=== PATIENT | male | born 1960 ===

== ENCOUNTER 2017-04-29 14:01 | Outpatient (CLI) | payer OTHER | END 2017-04-29 15:37 | disposition home or self-care (01) | LOC: SONOGRAMA 14:01 | DX: N40.1 Benign prostatic hyperplasia with lower urinary tract symptoms (principal); R31.9 Hematuria, unspecified ==

== ENCOUNTER 2017-04-29 14:12 | Outpatient (CLI) | payer OTHER | END 2017-04-29 15:37 | disposition home or self-care (01) | LOC: RAD 14:12 | DX: M54.5 Low back pain (principal); J80 Acute respiratory distress syndrome ==

== ENCOUNTER 2017-07-20 07:45 | Outpatient (CLI) | payer OTHER | END 2017-07-20 07:55 | disposition home or self-care (01) | LOC: SONOGRAMA 07:45 | DX: R97.20 Elevated prostate specific antigen [PSA] (principal) ==

== ENCOUNTER 2019-03-15 11:33 | Outpatient (CLI) | payer OTHER | END 2019-03-15 12:20 | disposition home or self-care (01) | LOC: RAD 11:33 | DX: M25.551 Pain in right hip (principal) ==

== ENCOUNTER 2020-10-16 08:00 | Outpatient (CLI) | payer OTHER | END 2020-10-16 08:30 | disposition home or self-care (01) | LOC: PPH VACUNA 08:00 | DX: Z23 Encounter for immunization (principal) ==

== ENCOUNTER 2020-11-19 08:00 | Outpatient (CLI) | payer OTHER | END 2020-11-19 08:30 | disposition home or self-care (01) | LOC: PPH VACUNA 08:00 | PROVIDERS: ATTEND Emergency Medicine Pediatric Emergency Medicine | DX: Z23 Encounter for immunization (principal) ==